=== PATIENT | female | born 1955 | race Two or more races ===

== ENCOUNTER → 2025-03-20 | Outpatient (CLI) | payer MEDICARE, SELFPAY ==
--- NOTE | 2025-03-20 14:15 | XR_ITS ---
Examination: Bone densitometry Date and time of exam:March 20, 2025 1427 hours INDICATIONS: Menopause age 49 Technique: Lumbar spine and hip total bone mineralization values of an calculated. Peak reference and age match control results have been displayed. Findings: Lumbar spine total bone mineralization is1.008 gm/cm2. This is 0.4 standard deviations below peak reference. This is 1.6 standard deviations above age-matched controls. Hip total bone mineralization is 0.832 gm/cm2 This is 0.9 standard deviations below peak reference. This is 0.5 standard deviations above age-matched controls Impression: There is normal mineralization based on lumbar spine measurements. There is normal mineralization based on hip measurements
== END | disposition home or self-care (01) ==
LOC: CDIM 13:56
PROVIDERS: Referring Provider Nurse Practitioner; Visit Provider Nurse Practitioner
DX: M81.0 Age-related osteoporosis without current pathological fracture (principal)
CPT/HCPCS: 77080